=== PATIENT | female | born 1950 | race Caucasian/White ===

== ENCOUNTER 2018-05-09 09:15 | Emergency (ER) | payer MEDICARE ==
[2018-05-09 09:26] VITALS: BP 130/66
--- NOTE | 2018-05-09 09:48 | UC ---
Complaint Female HPI - HPI Summary HPI Summary: 68 yo female presents with urinary frequency, pressure, and burning for the last 3-4 days. She has been trying to drink more water, but no relief. Denies fever, chills, abdominal pain, n/v, flank pain. - History Of Current Complaint Chief Complaint: UCGU Stated Complaint: URINARY ISSUE Time Seen by Provider: 05/09/18 09:48 Hx Obtained From: Patient Onset/Duration: Gradual Onset Timing: Constant Severity Initially: Mild Severity Currently: Mild Pain Intensity: 4 Pain Scale Used: 0-10 Numeric - Allergies/Home Medications Allergies/Adverse Reactions: Allergies Allergy/AdvReac Type Severity Reaction Status Date / Time cephalexin [From Keflex] Allergy Rash Verified 05/09/18 09:26 Home Medications: Home Medications Atorvastatin* [Lipitor 20 MG*] 20 mg PO DAILY 05/09/18 [History Confirmed ] Levothyroxine Sodium [Synthroid] 150 mcg PO DAILY 05/09/18 [History Confirmed ] PMH/Surg Hx/FS Hx/Imm Hx Endocrine History: Hypothyroidism, Dyslipidemia - Surgical History Surgical History: Yes Surgery Procedure, Year, and Place: appy,thyroidectomy,breast lump.shoulder r , tubal ligation - Family History Known Family History: Positive: None - Social History Occupation: Employed Full-time Lives: With Family Alcohol Use: Rare Substance Use Type: None Smoking Status (MU): Never Smoked Tobacco Review of Systems All Other Systems Reviewed And Are Negative: Yes Constitutional: Positive: Negative Skin: Positive: Negative Respiratory: Positive: Negative Cardiovascular: Positive: Negative Gastrointestinal: Positive: Negative Genitourinary: Positive: Dysuria, Frequency, Urgency Neurovascular: Positive: Negative Neurological: Positive: Negative Psychological: Positive: Negative Physical Exam - Summary Physical Exam Summary: GENERAL: NAD. WDWN. No pain distress. SKIN: No rashes, sores, lesions, or open wounds. NECK: Supple. Nontender. No lymphadenopathy. CHEST: CTAB. No r/r/w. No accessory muscle use. Breathing comfortably and in no distress. CV: RRR. Without m/r/g. Pulses intact. Cap refill <2seconds ABDOMEN: Soft. NTTP. No CVA tenderness. Bowel sounds present NEURO: Alert. PSYCH: Age appropriate behavior. Triage Information Reviewed: Yes Vital Signs: Initial Vital Signs Temp 97 F 05/09/18 09:22 Pulse 71 05/09/18 09:22 Resp 16 05/09/18 09:22 BP 130/66 05/09/18 09:22 Pulse Ox 100 05/09/18 09:22 Laboratory Tests 05/09/18 09:44 POC Urine Color Light yellow POC Urine Clarity Clear POC Urine pH 7.0 POC Ur Specif [place] 1.015 POC Urine Protein Negative POC Ur Glucose (UA) Negative POC Urine Ketones Negative POC Urine Blood Negative POC Urine Nitrite Negative POC Urine Bilirubin Negative POC Urine Urobilinogen 0.2 POC U Leukocyte Esteras 1+ A Vital Signs Reviewed: Yes Complaint Female Dx - Course Course Of Treatment: UA with leuks. Will treat for UTI with bactrim and send urine for culture. - Differential Dx/Diagnosis Provider Diagnosis: UTI (urinary tract infection) Discharge - Sign-Out/Discharge Documenting (check all that apply): Patient Departure All imaging exams completed and their final reports reviewed: No Studies - Discharge Plan Condition: Stable Disposition: HOME Prescriptions: Phenazopyridine 200 mg (NF) [Pyridium 200 MG tab *] 200 mg PO TID #6 tab Sulfamethox/Trimethoprim DS* [Bactrim DS 800/160 TAB*] 1 tab PO BID #10 tab Patient Education Materials: Urinary Tract Infection in Women (DC) Referrals: Alva Whitehead MD [Primary Care Provider] - Additional Instructions: If you develop a fever, shortness of breath, chest pain, new or worsening symptoms - please call your PCP or go to the ED. - Billing Disposition and Condition Condition: STABLE Disposition: Home
== END 2018-05-09 10:00 | disposition home or self-care (01) ==
LOC: UCEAST 09:15
DX: N39.0 Urinary tract infection, site not specified (principal); Z88.1 Allergy status to other antibiotic agents; E03.9 Hypothyroidism, unspecified; E78.5 Hyperlipidemia, unspecified
CPT/HCPCS: 81003; 87086; 99212; G0463

== ENCOUNTER 2018-07-02 08:13 | Emergency (ER) | payer MEDICARE ==
--- OUTSIDE RECORDS SUMMARY | 2018-07-02 08:18 | XMS REPORT | Continuity of Care Document ---
:1950 External Reference #:[id number] Author Name Arlene Londono O.D. Address [address] [facility] [place] [address] Care Team Providers Name Role Phone Alva Whitehead M.D. Primary Care Physician Unavailable Payers Date Identification Numbers Payment Provider Subscriber Policy Number: [id number] Medicare - [facility] Zenaida Poe PayID: [id number] [address] [place] [address] Policy Number: [id number] [facility] Zenaida Poe PayID: [id number] [address] [place] [address] Advance Directives Description No Information Available Problems Active Problems Provider Date Rosacea Joelle Stout O.D. Onset: 08/02/2014 Essential hypertension Joelle Stout O.D. Onset: 08/02/2014 Hypercholesterolemia Joelle Stout O.D. Onset: 08/02/2014 Seasonal allergy Joelle Stout O.D. Onset: 08/02/2014 Gastroesophageal reflux disease Joelle Stout O.D. Onset: 08/02/2014 Hypothyroidism Joelle Stout O.D. Onset: 08/02/2014 Myopia Joelle Stout O.D. Onset: 08/02/2014 Tear film insufficiency Jazz Bear O.D. Onset: 06/04/2015 Combined form of senile cataract Jazz Bear O.D. Onset: 06/04/2015 Presbyopia Jazz Bear O.D. Onset: 06/04/2015 Nuclear senile cataract Arlene Londono O.D. Onset: 06/11/2016 Alternating esotropia Arlene Londono O.D. Onset: 06/11/2016 Trichiasis of right eyelid Arlene Londono O.D. Onset: 10/03/2017 Chalazion Arlene Londono O.D. Onset: 10/03/2017 Retinal lattice degeneration Arlene Londono O.D. 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 ETOH Use Occasionally consumes alcohol 1 to 2 x week Tobacco Use Start: Unknown Patient has never smoked Recreational Drug Use Denies Drug Use Smoking Status Reviewed: 06/14/18 Patient has never smoked Allergies, Adverse Reactions, Alerts Active Allergies Reaction Severity Comments Date Keflex 08/02/2014 Seasonal 06/13/2017 Medications Active Medications SIG Qnty Indications Ordering Provider Date Synthroid Unknown 150mcg Tablets Loratadine Unknown 10mg Tablets Calcium 600 Unknown 600mg Tablets Multivitamins Unknown Capsules Vitamin D every day Unknown 1000Unit Tablets Baby Shampoo on lids Unknown Shampoo Atorvastatin Calcium Take 1/2 Tablet Unknown 10mg By Mouth One Tablets Time Daily Refresh Tears as needed Arlene Barber 0.5% Solution Celsa Londono History Medications Erythromycin apply thin strip 1Tube H00.12 Arlene Barber 10/03/2017 - 5mg/GM to both eyes at Bry O.DMarcos 10/18/2017 Ointment bedtime x 2 weeks Blink Tears prn Joelle Stout, 07/12/2014 - Lubricating Eye Drops O.D. 12/14/2017 0.25% Solution Omeprazole Unknown - 20mg 12/14/[address] Arriaga Unknown - 20mg Tablets 12/14/2017 Medications Administered in Office Medication SIG Qnty Indications Ordering Provider Date Camille Quispe, 08/07/2001 Injection Fclsa Immunizations Description No Information Available Vital Signs Description No Information Available Results Description No Information Available Procedures Date Code Description Status 10/03/2017 16954 Est Patient Intermediate Exam Completed 06/13/2017 69809 Determination Of Refractive State Completed 06/13/2017 87350 Est Patient Comprehensive Exam Completed 06/11/2016 06927 Est Patient Comprehensive Exam Completed 06/11/2016 101 Level 1 SCL Fit/Refit Completed 06/04/2015 81432 Determination Of Refractive State Completed 06/04/2015 44284 Est Patient Comprehensive Exam Completed 06/04/2014 101 Level 1 SCL Fit/Refit Completed 06/04/2014 41493 Est Patient Comprehensive Exam Completed 06/04/2014 11656 Determination Of Refractive State Completed 06/19/2013 98805 Determination Of Refractive State Completed 06/19/2013 50406 Est Patient Comprehensive Exam Completed 06/19/2013 101 Level 1 SCL Fit/Refit Completed 06/12/2013 17706 Est Patient Intermediate Exam Completed 06/12/2012 75154 Determination Of Refractive State Completed 06/12/2012 62038 Est Patient Comprehensive Exam Completed 06/12/2012 201 Refit - No Change In Fit Completed 06/07/2011 201 Refit - No Change In Fit Completed 06/07/2011 18233 Est Patient Comprehensive Exam Completed 06/07/2011 83312 Determination Of Refractive State Completed 05/18/2010 12544 Determination Of Refractive State Completed 05/18/2010 03659 Est Patient Comprehensive Exam Completed 05/18/2010 201 Refit - No Change In Fit Completed 05/14/2009 18784 Determination Of Refractive State Completed 05/14/2009 07225 Est Patient Comprehensive Exam Completed 05/14/2009 201 Refit - No Change In Fit Completed 04/29/2008 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 Completed 10/02/2007 98283 Est Patient Intermediate Exam Completed 08/10/2007 201 Refit - No Change In Fit Completed 08/10/2007 50020 Est Patient Comprehensive Exam Completed 08/10/2007 52522 Determination Of Refractive State Completed 07/22/2006 91447 Determination Of Refractive State Completed 07/22/2006 97526 Est Patient Comprehensive Exam Completed 07/22/2006 201 Refit - No Change In Fit Completed 12/19/2003 49766 Cancelled Appointment Completed 08/29/2003 63809 Determination Of Refractive State Completed 08/29/2003 00248 Est Patient Comprehensive Exam Completed 08/29/2003 05811 Rescheduled Appointment Completed 08/07/2001 113 [address]rizal Completed Encounters Type Date Location Provider Dx Diagnosis Office Visit 12/04/2013 Ignacio Hickey, Jazz Bear, 375.15 Dry Eyes ( 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 If you are happy with your vision as it is now, then we willsee you at your next scheduled appointment. If you feel like your vision is getting worse before your scheduled appointment, please call Shara Greenfield at [phone].Follow up:1 Year Follow Up / CL FIT You can expect to have your eyes dilated at your next visit. If Dr. Londono orders any additional testing, it may require extra time. We recommend that you bring sunglasses,as dilation drops often make you light sensitive until they wear off. We always recommend you bring someone to drive you home if you are uncomfortable driving with your eyes dilated. If you have any questions before your next visit, feel free to call our office at .H50.05 Alternating [id number] Lattice degeneration of retina, right eye
--- NOTE | 2018-07-02 08:24 | UC ---
Complaint Female HPI - HPI Summary HPI Summary: 68-year-old female presents with 3-4 day history of dysuria, frequency, low back pain, and lower abdominal "cramping". Denies fever, chills, nausea, vomiting, vaginal discharge, or abnormal bleeding. - History Of Current Complaint Stated Complaint: UTI Time Seen by Provider: 07/02/18 08:16 Hx Obtained From: Patient - Allergies/Home Medications Allergies/Adverse Reactions: Allergies Allergy/AdvReac Type Severity Reaction Status Date / Time cephalexin [From Keflex] Allergy Rash Verified 07/02/18 08:21 Home Medications: Home Medications Loratadine 10 mg PO DAILY 07/02/18 [History Confirmed 07/02/18] PMH/Surg Hx/FS Hx/Imm Hx Endocrine History: Thyroid Disease, Dyslipidemia - Surgical History Surgical History: Yes Surgery Procedure, Year, and Place: appy,thyroidectomy,breast lump.shoulder r , tubal ligation - Family History Known Family History: Positive: Non-Contributory - Social History Occupation: Retired Lives: Alone Alcohol Use: Rare Substance Use Type: None Smoking Status (MU): Never Smoked Tobacco Review of Systems All Other Systems Reviewed And Are Negative: Yes Physical Exam - Summary Physical Exam Summary: GENERAL APPEARANCE: Well developed, well nourished, alert and cooperative, and appears to be in no acute distress. CARDIAC: Normal S1 and S2. No S3, S4 or murmurs. Rhythm is regular. There is no peripheral edema, cyanosis or pallor. Extremities are warm and well perfused. Capillary refill is less than 2 seconds. Peripheral pulses intact. LUNGS: Clear to auscultation without rales, rhonchi, wheezing or diminished breath sounds. ABDOMEN: Positive bowel sounds. Soft, nondistended, nontender. No guarding or rebound. No masses or hepatosplenomegally. No CVA tenderness. MUSKULOSKELETAL: ROM intact to all extremities. No joint erythema or tenderness. Normal muscular development. Normal gait. SKIN: Skin normal color, texture and turgor with no lesions or eruptions. Triage Information Reviewed: Yes Vital Signs Reviewed: Yes Complaint Female Dx - Course Course Of Treatment: 68-year-old female presents with 3-4 day history of dysuria, frequency, low back pain, and lower abdominal "cramping". Denies fever, chills, nausea, vomiting, vaginal discharge, or abnormal bleeding. Afebrile. Mildly hypertensive otherwise vital signs stable. Exam was oral unremarkable. Point- of-care urinalysis showed trace leukocytes, trace blood. Urine culture pending. Patient was seen at this facility 05/09/2018 for similar symptoms. Urine culture at that time showed no growth. I did review these results with the patient and discussed with her that her symptoms may be from some vulvovaginal atrophy which she may want to discuss with her primary care provider should this urine culture also been negative. I will treat for possible UTI with Bactrim DS 1 tab twice a day for 5 days and provide her with a 2 day course of Pyridium 1 tab 3 times a day for the discomfort. She is to follow-up with her primary care provider in 3-5 days if symptoms do not improve. Anticipatory guidance warning symptoms were reviewed with the patient. Verbalizes understanding and agrees with plan of care. - Differential Dx/Diagnosis Differential Diagnosis/HQI/PQRI: Renal Colic, Urinary Tract Infection, Other - Vaginal atrophy Provider Diagnosis: UTI (urinary tract infection) Discharge - Sign-Out/Discharge Documenting (check all that apply): Patient Departure All imaging exams completed and their final reports reviewed: No Studies - Discharge Plan Condition: Stable Disposition: HOME Prescriptions: Phenazopyridine TAB* [Pyridium 100 mg TAB*] 100 mg PO TID #6 tab Sulfamethox/Trimethoprim DS* [Bactrim DS 800/160 TAB*] 1 tab PO BID #10 tab Patient Education Materials: Urinary Tract Infection in Women (ED) Referrals: Alva Whitehead MD [Primary Care Provider] - 3 Days Additional Instructions: Your urine test in the clinic today is suggestive of a urinary tract infection. We will start you on an antibiotic to treat for the infection. We will also send a urine culture today to see what bacteria grow out and make sure the antibiotic you were prescribed is appropriate to treat the infection. It will take 48-72 hours to get these results. We will contact you if there is any change in your treatment plan. Start Bactrim DS 1 tab twice a day for 5 days. Take Pyridium 1 tablet every 8 hours for next 2 days to help with the discomfort. This medication will turn your urine an orange color. Drink plenty of fluids. To help prevent urinary tract infections: 1) Be sure to wipe from front to back. 2) Avoid taking bubble baths. Follow up with your primary care provider in 3-5 days if symptoms persist. Seek immediate medical attention in the emergency room if you develop fever greater than 100.5 F, have severe abdominal pain, persistent vomiting, or any worsening of symptoms. - Billing Disposition and Condition Condition: STABLE Disposition: Home
[2018-07-02 08:26] VITALS: BP 131/76
== END 2018-07-02 08:40 | disposition home or self-care (01) ==
LOC: UCEAST 08:13
DX: N39.0 Urinary tract infection, site not specified (principal); M54.5 Low back pain; I10 Essential (primary) hypertension; E07.9 Disorder of thyroid, unspecified; E78.5 Hyperlipidemia, unspecified; Z88.1 Allergy status to other antibiotic agents
CPT/HCPCS: 81003; 87086; 99212; G0463